=== PATIENT | female | born 1965 | race Caucasian/White ===

== ENCOUNTER → 2018-10-02 | Outpatient (CLI) | payer BC, OTHER ==
[~2018-10-02] MED LIST: INSU100I11 SQ; LEVE1U SQ; LISI20TA PO; METF-380 PO; METO25TA2 PO; ONDAN4ODT PO
--- NOTE | 2018-10-02 13:26 | Diagnostic Imaging Report ---
PROCEDURE: US Non-OB pelvis comp/trans. TECHNIQUE: Multiple realtime grayscale images were obtained of the pelvis in various projections endovaginally. Transabdominal imaging was also performed. INDICATION: Vaginal bleeding. FINDINGS: The uterus measures 7.4 x 3.6 x 4.2 cm. Endometrium is 6 mm in thickness. No myometrial mass is identified. Ovaries could not be visualized. No adnexal mass or free fluid is seen. IMPRESSION: Nonvisualized ovaries. The study is otherwise unremarkable. Dictated by: Dictated on workstation # [id number]
== END ==
LOC: RAD 11:02
PROVIDERS: ATTEND Obstetrics & Gynecology
DX: N95.0 Postmenopausal bleeding (principal)
CPT/HCPCS: 76830; 76856